=== PATIENT | male | born 1935 | race Caucasian/White ===

== ENCOUNTER 2019-10-26 18:01 | Inpatient (IN) ==
[2019-10-26 18:34] LABS: Basophils % 0.1 %; Hemoglobin 16.2 g/dL (12.9-16.9); Immature Granulocytes % 0.6 % (0-4); Lymphocytes # 0.6 K/mcL (0.6-4.6); Lymphocytes % 3.1 %; Mean Corpuscular HGB Conc 33.1 g/dL (31.6-35.5); Mean Corpuscular Volume 90.7 fL (83.0-100.0); Mean Platelet Volume 8.9 fL (9.4-12.4); Monocytes # 1.4 K/mcL (0.0-1.3); Monocytes % 7.6 %; Neutrophils # 16.9 K/mcL (1.6-8.9); Platelet Count 298 K/mcL (140-400); Red Cell Distribution Width 14.6 % (11.5-14.5); Segmented Neutrophils % 88.6 %
[2019-10-26 18:49] LABS: INR 3.4; Prothrombin Time 38.8 Seconds (9.4-12.1)
[2019-10-26 18:59] LABS: Albumin 4.7 g/dL (3.5-5.7); Albumin/Globulin Ratio 1.1 (1.1-2.2); Bilirubin,Direct 0.4 mg/dL (0.0-0.2); Bilirubin,Total 2.4 mg/dL (0.3-1.0); Calcium 10.4 mg/dL (8.6-10.3); Globulin 4.2 g/dL (2.4-3.5); Magnesium 2.5 mg/dL (1.6-2.6); Potassium 4.2 mEq/L (3.5-5.1); Total Protein 8.9 g/dL (6.4-8.9); Troponin I 0.07 ng/mL (< 0.04)
[2019-10-26] MEDS ORDERED: 0.9 % Sodium Chloride 1,000 ML IVC ONE (19:00)
[2019-10-26] MEDS ORDERED: Naloxone 0.4 MG/ML INJ IVP PRN (20:26)
[2019-10-26] MEDS ORDERED: 0.9 % Sodium Chloride 1,000 ML IVC SCH (20:30)
[2019-10-26] MEDS ORDERED: Ondansetron 4 MG/2 ML VIAL IVP ONE (20:49)
[2019-10-26 22:30] LABS: Adenovirus Not Detected (Not Detect); Bordetella Pertussis Not Detected (Not Detect); Chlamydophila pneumoniae Not Detected (Not Detect); Coronavirus 229E Not Detected (Not Detect); Coronavirus HKU1 Not Detected (Not Detect); Coronavirus NL63 Not Detected (Not Detect); Coronavirus OC43 Not Detected (Not Detect); Human Metapneumovirus Not Detected (Not Detect); Human Rhinovirus/Enterovirus Not Detected (Not Detect); Influenza A Subtype 2009 H1 Not Detected (Not Detect); Influenza B Not Detected (Not Detect); Mycoplasma pneumoniae Not Detected (Not Detect); Parainfluenza Virus 1 Not Detected (Not Detect); Parainfluenza Virus 2 Not Detected (Not Detect); Parainfluenza Virus 3 Not Detected (Not Detect); Parainfluenza Virus 4 Not Detected (Not Detect); Respiratory Syncytial Virus Not Detected (Not Detect); SARS-CoV-2 Not Detected (Not Detect)
[2019-10-26] MEDS ORDERED: cefTRIAXone 1,000 MG in 0.9 % Sodium Chloride Mini Bag 100 ML IVPB SCH (23:55)
[2019-10-27] MEDS ORDERED: 0.9 % Sodium Chloride 250 ML ONE (00:27)
[2019-10-27] MEDS: MetroNIDAZOLE 500 MG/100 ML 500 MG/100 ML BAG IVPB SCH ×3 (00:51→18:49)
[2019-10-27] MEDS: cefTRIAXone 1,000 MG in 0.9 % Sodium Chloride Mini Bag 100 ML IVPB SCH (00:51)
[2019-10-27] MEDS: Azithromycin 500 MG in 0.9 % Sodium Chloride 250 ML IVPB SCH (00:52)
[2019-10-27 01:37] LABS: Basophils % 0.1 %; Hematocrit 49.1 % (37.5-50.1); Hemoglobin 16.3 g/dL (12.9-16.9); Immature Granulocytes % 0.4 % (0-4); Lymphocytes # 0.4 K/mcL (0.6-4.6); Lymphocytes % 2.5 %; Mean Corpuscular HGB Conc 33.2 g/dL (31.6-35.5); Mean Corpuscular Hemoglobin 30.7 pg (28.0-33.3); Mean Corpuscular Volume 92.5 fL (83.0-100.0); Mean Platelet Volume 9.3 fL (9.4-12.4); Monocytes # 0.8 K/mcL (0.0-1.3); Monocytes % 4.9 %; Neutrophils # 15.6 K/mcL (1.6-8.9); Platelet Count 273 K/mcL (140-400); Red Blood Count 5.31 M/mcL (4.19-5.50); Red Cell Distribution Width 14.8 % (11.5-14.5); Segmented Neutrophils % 92.1 %; White Blood Count 16.9 K/mcL (4.3-11.1)
[2019-10-27 01:38] LABS: INR 3.7; Prothrombin Time 42.1 Seconds (9.4-12.1)
[2019-10-27 02:21] LABS: Albumin 4.3 g/dL (3.5-5.7); Albumin/Globulin Ratio 1.1 (1.1-2.2); Bilirubin,Total 2.5 mg/dL (0.3-1.0); Calcium 9.8 mg/dL (8.6-10.3); Total Protein 8.3 g/dL (6.4-8.9); Troponin I 0.08 ng/mL (< 0.04)
[2019-10-27 08:00] LABS: Troponin I 0.1 ng/mL (< 0.04)
[2019-10-27 08:08] LABS: Calcium 9.6 mg/dL (8.6-10.3)
[2019-10-27] MEDS ORDERED: *HR* LORazepam 2 MG/ML VIAL IVP ONE (09:33)
[2019-10-27] MEDS ORDERED: Morphine Sulfate 2 MG/ML SYRINGE IVP ONE (09:40)
[2019-10-27 12:32] LABS: Hematocrit 44.1 % (37.5-50.1)
[2019-10-27 12:46] LABS: Hemoglobin 14.2 g/dL (12.9-16.9)
[2019-10-27] MEDS ORDERED: *HR* Metoprolol 5 MG/5 ML VIAL IVP PRN (14:38)
[2019-10-27 17:27] LABS: Hematocrit 43.5 % (37.5-50.1); Hemoglobin 14.4 g/dL (12.9-16.9)
[2019-10-27 17:38] LABS: Prothrombin Time 57.3 Seconds (9.4-12.1)
[2019-10-27] MEDS ORDERED: Warfarin perPT PO PRN (18:00)
[2019-10-27] MEDS: Pantoprazole 40 MG VIAL IVP SCH (18:49)
[2019-10-27] MEDS: 0.9 % Sodium Chloride 1,000 ML IVC SCH (18:52)
[2019-10-28] MEDS: Azithromycin 500 MG in 0.9 % Sodium Chloride 250 ML IVPB SCH ×2 (00:24→21:27)
[2019-10-28] MEDS: MetroNIDAZOLE 500 MG/100 ML 500 MG/100 ML BAG IVPB SCH ×4 (00:30→23:51)
[2019-10-28] MEDS: cefTRIAXone 1,000 MG in 0.9 % Sodium Chloride Mini Bag 100 ML IVPB SCH ×2 (02:16→21:25)
[2019-10-28 04:09] LABS: Basophils % 0.1 %; Eosinophils % 0.1 %; Hematocrit 42.5 % (37.5-50.1); Hemoglobin 13.6 g/dL (12.9-16.9); Immature Granulocytes % 0.6 % (0-4); Lymphocytes % 7.3 %; Mean Corpuscular Hemoglobin 30.4 pg (28.0-33.3); Mean Corpuscular Volume 95.1 fL (83.0-100.0); Mean Platelet Volume 9.6 fL (9.4-12.4); Monocytes # 0.9 K/mcL (0.0-1.3); Monocytes % 6.6 %; Neutrophils # 11.6 K/mcL (1.6-8.9); Platelet Count 224 K/mcL (140-400); Red Blood Count 4.47 M/mcL (4.19-5.50); Red Cell Distribution Width 14.6 % (11.5-14.5); Segmented Neutrophils % 85.3 %; White Blood Count 13.6 K/mcL (4.3-11.1)
[2019-10-28 04:16] LABS: Calcium 8.2 mg/dL (8.6-10.3); Potassium 3.7 mEq/L (3.5-5.1)
[2019-10-28 04:33] LABS: INR 1.9; Prothrombin Time 21.8 Seconds (9.4-12.1)
[2019-10-28] MEDS: 0.9 % Sodium Chloride 1,000 ML IVC SCH ×2 (04:56→21:26)
[2019-10-28] MEDS: Pantoprazole 40 MG VIAL IVP SCH ×2 (04:57→18:10)
[2019-10-28] MEDS ORDERED: *HR* Heparin 5,000 UNIT/ML VIAL IVP PRN ×4 (06:57→13:36)
[2019-10-28] MEDS ORDERED: *HR* Heparin 5,000 UNIT/ML VIAL IVP ONE ×2 (06:57→13:36)
[2019-10-28] MEDS ORDERED: Heparin 25,000UNIT/250ML 1/2NS 25,000 UNIT/250 ML IV.SOLN IVC SCH (07:00)
[2019-10-28 07:34] LABS: Hematocrit 39.6 % (37.5-50.1); Mean Corpuscular HGB Conc 32.8 g/dL (31.6-35.5); Mean Corpuscular Volume 94.3 fL (83.0-100.0); Mean Platelet Volume 9.4 fL (9.4-12.4); Platelet Count 206 K/mcL (140-400); Red Cell Distribution Width 14.6 % (11.5-14.5); White Blood Count 12.6 K/mcL (4.3-11.1)
[2019-10-28 07:44] LABS: Heparin anti-factor XA UFH < 0.04 IU/mL (0.30-0.70)
[2019-10-28 07:45] LABS: INR 1.6; Prothrombin Time 18.3 Seconds (9.4-12.1)
[2019-10-28] MEDS ORDERED: Lidocaine -MPF 2% 2 ML VIAL ONE (09:45)
[2019-10-28] MEDS ORDERED: *HR* Rocuronium Bromide 50 MG/5 ML VIAL ONE (09:45)
[2019-10-28] MEDS ORDERED: *HR* FentaNYL (PF) 100 MCG/2 ML VIAL ONE (09:45)
[2019-10-28] MEDS ORDERED: *HR* Succinylcholine 200 MG/10 ML VIAL IVP ONE (09:45)
[2019-10-28] MEDS ORDERED: Dexamethasone 4 MG/ML VIAL ONE (09:45)
[2019-10-28] MEDS ORDERED: Ondansetron 4 MG/2 ML VIAL ONE (09:45)
[2019-10-28] MEDS ORDERED: *HR* Propofol 200 MG/20 ML VIAL IVP ONE (09:46)
[2019-10-28] MEDS ORDERED: MetroNIDAZOLE 500 MG/100 ML 500 MG/100 ML BAG IVPB ONE (10:42)
[2019-10-28] MEDS ORDERED: *HR* PHENYLEPHRINE 1,000 MCG/10 ML SYRINGE IVP ONE (10:58)
[2019-10-28] MEDS ORDERED: EPHEDrine 50 MG/ML VIAL ONE (10:59)
[2019-10-28] MEDS ORDERED: Ondansetron 4 MG/2 ML VIAL IVP ONE ×2 (11:16→13:36)
[2019-10-28] MEDS ORDERED: *HR* OxyCODONE Immed Rel 5 MG TABLET PO PRN ×2 (11:16→13:36)
[2019-10-28] MEDS ORDERED: *HR* FentaNYL (PF) 100 MCG/2 ML VIAL IVP PRN ×2 (11:16→13:36)
[2019-10-28] MEDS ORDERED: Naloxone 0.4 MG/ML INJ IVP PRN (13:36)
[2019-10-28] MEDS ORDERED: *HR* Metoprolol 5 MG/5 ML VIAL IVP PRN (13:36)
[2019-10-28 16:55] LABS: Hematocrit 39.4 % (37.5-50.1); Hemoglobin 12.5 g/dL (12.9-16.9)
[2019-10-28] MEDS: Heparin 25,000UNIT/250ML 1/2NS 25,000 UNIT/250 ML IV.SOLN IVC SCH (18:52)
[2019-10-29 01:59] LABS: Basophils % 0.1 %; Hematocrit 39.5 % (37.5-50.1); Immature Granulocytes % 0.5 % (0-4); Lymphocytes # 0.4 K/mcL (0.6-4.6); Lymphocytes % 3.3 %; Mean Corpuscular HGB Conc 32.9 g/dL (31.6-35.5); Mean Corpuscular Hemoglobin 31.1 pg (28.0-33.3); Mean Corpuscular Volume 94.5 fL (83.0-100.0); Mean Platelet Volume 9.4 fL (9.4-12.4); Monocytes # 0.8 K/mcL (0.0-1.3); Monocytes % 6.2 %; Neutrophils # 11.1 K/mcL (1.6-8.9); Platelet Count 211 K/mcL (140-400); Red Blood Count 4.18 M/mcL (4.19-5.50); Red Cell Distribution Width 14.5 % (11.5-14.5); Segmented Neutrophils % 89.9 %; White Blood Count 12.4 K/mcL (4.3-11.1)
[2019-10-29 02:17] LABS: Calcium 8.4 mg/dL (8.6-10.3); Potassium 3.6 mEq/L (3.5-5.1)
[2019-10-29] MEDS: Pantoprazole 40 MG VIAL IVP SCH ×2 (05:41→17:32)
[2019-10-29 08:17] LABS: Heparin anti-factor XA UFH 0.44 IU/mL (0.30-0.70)
[2019-10-29] MEDS: 0.9 % Sodium Chloride 1,000 ML IVC SCH ×3 (09:36→20:23)
[2019-10-29] MEDS: MetroNIDAZOLE 500 MG/100 ML 500 MG/100 ML BAG IVPB SCH ×2 (09:43→15:10)
[2019-10-29 10:51] LABS: INR 1.3; Prothrombin Time 14.6 Seconds (9.4-12.1)
[2019-10-29 13:40] LABS: Hematocrit 40.5 % (37.5-50.1); Hemoglobin 12.7 g/dL (12.9-16.9)
[2019-10-29] MEDS: Heparin 25,000UNIT/250ML 1/2NS 25,000 UNIT/250 ML IV.SOLN IVC SCH (17:32)
[2019-10-29] MEDS ORDERED: Warfarin perPT PO PRN (18:00)
[2019-10-29] MEDS: Azithromycin 500 MG in 0.9 % Sodium Chloride 250 ML IVPB SCH (20:25)
[2019-10-29] MEDS: cefTRIAXone 1,000 MG in 0.9 % Sodium Chloride Mini Bag 100 ML IVPB SCH (20:26)
[2019-10-30] MEDS: MetroNIDAZOLE 500 MG/100 ML 500 MG/100 ML BAG IVPB SCH ×2 (00:55→07:59)
[2019-10-30] MEDS: Pantoprazole 40 MG VIAL IVP SCH ×2 (05:17→17:15)
[2019-10-30 08:05] LABS: Basophils % 0.2 %; Eosinophils # 0.1 K/mcL (0.0-0.6); Eosinophils % 0.9 %; Hematocrit 36.5 % (37.5-50.1); Hemoglobin 11.7 g/dL (12.9-16.9); Immature Granulocytes % 1.1 % (0-4); Lymphocytes # 0.8 K/mcL (0.6-4.6); Lymphocytes % 6.6 %; Mean Corpuscular HGB Conc 32.1 g/dL (31.6-35.5); Mean Corpuscular Hemoglobin 30.1 pg (28.0-33.3); Mean Corpuscular Volume 93.8 fL (83.0-100.0); Mean Platelet Volume 9.5 fL (9.4-12.4); Monocytes # 1.2 K/mcL (0.0-1.3); Monocytes % 10.1 %; Neutrophils # 9.4 K/mcL (1.6-8.9); Platelet Count 204 K/mcL (140-400); Red Blood Count 3.89 M/mcL (4.19-5.50); Red Cell Distribution Width 14.3 % (11.5-14.5); Segmented Neutrophils % 81.1 %; White Blood Count 11.5 K/mcL (4.3-11.1)
[2019-10-30 08:16] LABS: INR 1.4; Prothrombin Time 16.1 Seconds (9.4-12.1)
[2019-10-30 08:24] LABS: Calcium 8.1 mg/dL (8.6-10.3); Potassium 3.4 mEq/L (3.5-5.1)
[2019-10-30] MEDS ORDERED: Potassium Chloride Elixir 20 MEQ/15 ML UDC PO ONE (09:11)
[2019-10-30] MEDS: CLEAR EYES NATURAL TEARS 15 ML BOTTLE BOTH EYES SCH ×3 (13:37→20:18)
[2019-10-30] MEDS: metroNIDAZOLE 500 MG TABLET PO SCH ×2 (16:38→20:06)
[2019-10-30] MEDS ORDERED: CefTRIAXone 1,000 MG VIAL ONE (20:02)
[2019-10-30] MEDS: cefTRIAXone 1,000 MG in 0.9 % Sodium Chloride Mini Bag 100 ML IVPB SCH (20:07)
[2019-10-30] MEDS: Azithromycin 500 MG in 0.9 % Sodium Chloride 250 ML IVPB SCH (20:08)
[2019-10-30] MEDS: Heparin 25,000UNIT/250ML 1/2NS 25,000 UNIT/250 ML IV.SOLN IVC SCH (20:17)
[2019-10-31] MEDS: Pantoprazole 40 MG VIAL IVP SCH ×2 (05:22→17:41)
[2019-10-31 06:44] LABS: Basophils # 0.1 K/mcL (0.0-0.2); Basophils % 0.6 %; Eosinophils # 0.3 K/mcL (0.0-0.6); Eosinophils % 3.7 %; Hematocrit 33.4 % (37.5-50.1); Hemoglobin 11.1 g/dL (12.9-16.9); Immature Granulocytes % 3.6 % (0-4); Lymphocytes # 0.8 K/mcL (0.6-4.6); Lymphocytes % 8.6 %; Mean Corpuscular HGB Conc 33.2 g/dL (31.6-35.5); Mean Corpuscular Hemoglobin 31.3 pg (28.0-33.3); Mean Corpuscular Volume 94.1 fL (83.0-100.0); Mean Platelet Volume 9.6 fL (9.4-12.4); Monocytes # 1.1 K/mcL (0.0-1.3); Monocytes % 12.7 %; Neutrophils # 6.3 K/mcL (1.6-8.9); Platelet Count 183 K/mcL (140-400); Red Blood Count 3.55 M/mcL (4.19-5.50); Red Cell Distribution Width 14.1 % (11.5-14.5); Segmented Neutrophils % 70.8 %; White Blood Count 8.9 K/mcL (4.3-11.1)
[2019-10-31 06:52] LABS: INR 1.6
[2019-10-31 06:58] LABS: BUN/Creatinine Ratio 25 (6-26); Blood Urea Nitrogen 34 mg/dL (8-23); Calcium 7.9 mg/dL (8.6-10.3); Carbon Dioxide 23 mEq/L (23-29); Chloride 113 mEq/L (98-107); Glucose 88 mg/dL (70-105); Osmolality,Calculated 299 (280-300); Potassium 3.8 mEq/L (3.5-5.1); Sodium 141 mEq/L (136-145); eGFR For African Americans > 60 (> 60); eGFR For Non-African Americans 50 (> 60)
[2019-10-31] MEDS: metroNIDAZOLE 500 MG TABLET PO SCH ×3 (08:47→20:44)
[2019-10-31] MEDS: NIFEdipine XL (24 HR) 60 MG TAB.ER.24 PO SCH (08:47)
[2019-10-31] MEDS: CLEAR EYES NATURAL TEARS 15 ML BOTTLE BOTH EYES SCH ×5 (08:48→20:51)
[2019-10-31] MEDS ORDERED: Metoprolol XL (24 HR) Succ 50 MG TAB.ER.24H PO SCH (09:00)
[2019-10-31] MEDS ORDERED: Azithromycin 250 MG TABLET PO ONE (16:02)
[2019-10-31] MEDS: Furosemide 40 MG TABLET PO SCH (17:41)
[2019-10-31] MEDS ORDERED: *HR* Warfarin 2 MG TABLET PO ONE (18:00)
[2019-10-31] MEDS: cefTRIAXone 1,000 MG in 0.9 % Sodium Chloride Mini Bag 100 ML IVPB SCH (20:45)
[2019-11-01] MEDS: Heparin 25,000UNIT/250ML 1/2NS 25,000 UNIT/250 ML IV.SOLN IVC SCH ×2 (03:56→21:26)
[2019-11-01] MEDS: Pantoprazole 40 MG VIAL IVP SCH ×2 (05:45→18:24)
[2019-11-01 06:32] LABS: INR 1.8; Prothrombin Time 20.3 Seconds (9.4-12.1)
[2019-11-01 06:35] LABS: Hematocrit 34.9 % (37.5-50.1); Hemoglobin 11.5 g/dL (12.9-16.9); Mean Corpuscular Hemoglobin 30.7 pg (28.0-33.3); Mean Corpuscular Volume 93.1 fL (83.0-100.0); Mean Platelet Volume 9.6 fL (9.4-12.4); Platelet Count 215 K/mcL (140-400); Red Blood Count 3.75 M/mcL (4.19-5.50); Red Cell Distribution Width 14.3 % (11.5-14.5); White Blood Count 11.9 K/mcL (4.3-11.1)
[2019-11-01 07:25] LABS: Calcium 8.2 mg/dL (8.6-10.3); Magnesium 1.8 mg/dL (1.6-2.6); Phosphorous 1.9 mg/dL (2.7-4.5); Potassium 3.5 mEq/L (3.5-5.1)
[2019-11-01 07:32] LABS: Folate 4.5 ng/mL (3.0-16.0)
[2019-11-01] MEDS: NIFEdipine XL (24 HR) 60 MG TAB.ER.24 PO SCH (11:53)
[2019-11-01] MEDS: Furosemide 40 MG TABLET PO SCH ×2 (11:53→18:23)
[2019-11-01] MEDS: metroNIDAZOLE 500 MG TABLET PO SCH ×3 (11:54→21:25)
[2019-11-01] MEDS: CLEAR EYES NATURAL TEARS 15 ML BOTTLE BOTH EYES SCH ×4 (11:55→21:25)
[2019-11-01] MEDS ORDERED: *HR* Warfarin 1 MG TABLET PO ONE (18:00)
[2019-11-01] MEDS: cefTRIAXone 1,000 MG in 0.9 % Sodium Chloride Mini Bag 100 ML IVPB SCH (21:25)
[2019-11-02 04:36] LABS: Hematocrit 33.3 % (37.5-50.1); Hemoglobin 10.9 g/dL (12.9-16.9); Mean Corpuscular HGB Conc 32.7 g/dL (31.6-35.5); Mean Corpuscular Hemoglobin 30.9 pg (28.0-33.3); Mean Corpuscular Volume 94.3 fL (83.0-100.0); Mean Platelet Volume 9.8 fL (9.4-12.4); Platelet Count 199 K/mcL (140-400); Red Blood Count 3.53 M/mcL (4.19-5.50); Red Cell Distribution Width 14.4 % (11.5-14.5); White Blood Count 13.5 K/mcL (4.3-11.1)
[2019-11-02 04:39] LABS: INR 2.1; Prothrombin Time 24.3 Seconds (9.4-12.1)
[2019-11-02 04:58] LABS: BUN/Creatinine Ratio 13 (6-26); Blood Urea Nitrogen 17 mg/dL (8-23); Calcium 7.8 mg/dL (8.6-10.3); Carbon Dioxide 24 mEq/L (23-29); Chloride 106 mEq/L (98-107); Glucose 102 mg/dL (70-105); Magnesium 1.5 mg/dL (1.6-2.6); Osmolality,Calculated 290 (280-300); Phosphorous 2.3 mg/dL (2.7-4.5); Potassium 3.2 mEq/L (3.5-5.1); Sodium 139 mEq/L (136-145); eGFR For African Americans > 60 (> 60); eGFR For Non-African Americans 52 (> 60)
[2019-11-02] MEDS: Pantoprazole 40 MG VIAL IVP SCH (05:12)
[2019-11-02] MEDS: NIFEdipine XL (24 HR) 60 MG TAB.ER.24 PO SCH (08:46)
[2019-11-02] MEDS: Furosemide 40 MG TABLET PO SCH (08:46)
[2019-11-02] MEDS: metroNIDAZOLE 500 MG TABLET PO SCH (08:47)
[2019-11-02] MEDS: CLEAR EYES NATURAL TEARS 15 ML BOTTLE BOTH EYES SCH (08:47)
[2019-11-02] MEDS ORDERED: *HR* Warfarin 2 MG TABLET PO ONE (18:00)
[2019-11-02 20:22] VITALS: BP 146/75
== END 2019-11-02 20:57 | DRG 350 ==
LOC: EMEROOARM 18:01 → 2ANU 18:01 → SUATTDRO 22:32 → 2ANU 23:10 → SUATTDRO 10-28 09:38
PROVIDERS: ADMIT Internal Medicine; ATTEND Internal Medicine